=== PATIENT | male | born 1985 ===

== ENCOUNTER 2022-09-13 16:27 | Emergency (ER) | payer OTHER ==
[~2022-09-13] VITALS: Ht 160 cm; Wt 68.2 kg
[2022-09-13 20:15] VITALS: BP 127/67; PULSE 80; RESP 17; TEMP 98.1
[2022-09-13] MEDS ORDERED: DiphenhydrAMINE HCL 25 MG CAPSULE PO ONE (22:30)
[2022-09-13] MEDS ORDERED: ACETAMINOPHEN 500 MG TABLET PO ONE (22:30)
[2022-09-13 22:42] LABS: APPEARANCE,URINE CLEAR (CLEAR); BILIRUBIN,URINE NEGATIVE (NEGATIVE); GLUCOSE, URINE (UA) TRACE mg/dL (NEGATIVE); KETONES,URINE NEGATIVE (NEGATIVE); LEUKOCYTE ESTERASE ,URINE TRACE (NEGATIVE); NITRATE,URINE NEGATIVE (NEGATIVE); OCCULT BLOOD,URINE NEGATIVE (NEGATIVE); PH,URINE 6.5 (5.0-8.0); PROTEIN,URINE 100-200,SEE CONFIRM mg/dL (NEGATIVE); SPECIFIC GRAVITIY, URINE 1.018 (1.003-1.030); UROBILINOGEN,URINE <=1.0 mg/dL (<=1.0)
[2022-09-13 22:52] LABS: RBC,URINE None Seen /HPF (0-2); SULFOSALICYLIC ACID,URINE 3+ (Negative)
[2022-09-13 22:53] LABS: BACTERIA,URINE None Seen /HPF (None Seen)
== END 2022-09-14 00:41 ==
LOC: EMS 16:50
DX: K40.90 Unilateral inguinal hernia, without obstruction or gangrene, not specified as recurrent (principal)
CPT/HCPCS: 81001; 81002; 99283